=== PATIENT | female | born 1990 | race Caucasian/White ===

== ENCOUNTER → 2020-12-01 11:40 | Outpatient (BNVA) | payer OTHER, SELFPAY | PROVIDERS: PCP Physician Assistant Medical; Visit Provider Advanced Practice Midwife ==

== ENCOUNTER 2020-12-17 14:33 | Outpatient (REF) | payer OTHER, SELFPAY ==
[2020-12-17 17:49] LABS: HCG Quantitative 35 mIU/mL
== END 2020-12-17 14:34 | disposition home or self-care (01) ==
LOC: HO.LAB 14:33
PROVIDERS: PCP Physician Assistant Medical; Visit Provider Advanced Practice Midwife
DX: N92.6 Irregular menstruation, unspecified (principal)
CPT/HCPCS: 36415; 81025; 84702; 99212

== ENCOUNTER 2020-12-22 14:05 | Outpatient (REF) | payer OTHER, SELFPAY ==
[2020-12-22 15:55] LABS: HCG Quantitative 201 mIU/mL
== END 2020-12-22 14:06 | disposition home or self-care (01) ==
LOC: HO.LAB 14:05
PROVIDERS: PCP Physician Assistant Medical; Visit Provider Advanced Practice Midwife
DX: Z34.90 Encounter for supervision of normal pregnancy, unspecified, unspecified trimester (principal)
CPT/HCPCS: 36415; 84702

== ENCOUNTER 2020-12-25 11:05 | Outpatient (REF) | payer OTHER, SELFPAY ==
[2020-12-25 12:54] LABS: HCG Quantitative 695 mIU/mL
== END 2020-12-25 11:06 | disposition home or self-care (01) ==
LOC: HO.LAB 11:05
PROVIDERS: Visit Provider Advanced Practice Midwife
DX: Z34.90 Encounter for supervision of normal pregnancy, unspecified, unspecified trimester (principal)
CPT/HCPCS: 36415; 84702

== ENCOUNTER 2020-12-27 16:50 | Outpatient (REF) | payer OTHER, SELFPAY ==
[2020-12-27 19:26] LABS: HCG Quantitative 1406 mIU/mL
== END 2020-12-27 16:51 | disposition home or self-care (01) ==
LOC: HO.LAB 16:50
PROVIDERS: Visit Provider Obstetrics & Gynecology
DX: Z34.90 Encounter for supervision of normal pregnancy, unspecified, unspecified trimester (principal); N92.6 Irregular menstruation, unspecified
CPT/HCPCS: 36415; 84702

== ENCOUNTER 2020-12-29 16:54 | Outpatient (REF) | payer OTHER, SELFPAY ==
[2020-12-29 18:39] LABS: HCG Quantitative 2671 mIU/mL
== END 2020-12-29 16:55 | disposition home or self-care (01) ==
LOC: HO.LAB 16:54
PROVIDERS: Visit Provider Advanced Practice Midwife
DX: Z34.90 Encounter for supervision of normal pregnancy, unspecified, unspecified trimester (principal)
CPT/HCPCS: 36415; 84702

== ENCOUNTER 2020-12-31 14:50 | Outpatient (REF) | payer OTHER, SELFPAY ==
--- NOTE | ~2020-12-31 | US_ITS ---
EXAMINATION: OBSTETRICAL ULTRASOUND, FIRST TRIMESTER HISTORY: 30-year-old at 5.4 weeks of gestation Viability LMP: 11/22/2020 COMPARISON: None in this TECHNIQUE: Real time transabdominal imaging with color and M-mode Doppler. Transvaginal ultrasound was performed using an endovaginal probe. FINDINGS: A single intrauterine gestational sac with diameter of 7.8 mm consistent with 5 weeks and 3 days is noted. There is no yolk sac or embryonic pole seen. Left ovary is within normal limits (2.7 x 2.2 x 2.2 cm). Right ovary measured 1.9 x 1.6 x 1.4 cm. There are 2 anechoic paraovarian cysts seen. 1.8 x 1.4 x 1.5 cm and 1.4 x 1.1 x 1.1 cm. GESTATIONAL AGE: 1. GA from LMP: 5.4 wks 2. GA from AUA: 5.3 wks ESTIMATED DATE OF DELIVERY: 1. CARROLL from LMP: 08/29/2021 2. CARROLL from AUA: 08/30/2021 US/US OB transvaginal IMPRESSION: 1. A single intrauterine gestational sac without yolk sac or embryo was noted. 2. Paraovarian cysts in the right adnexa 3. No fluid in the posterior cul-de-sac I informed the patient that the today's finding is consistent with early . Until 6 weeks of gestation, and embryonic pole may not be visible. She informs me that her serum beta hCG has been rising appropriately. Suggest a follow-up in one week for viability. (Not scheduled). Thank you very much for this referral. This note was generated with a voice recognition program. Please excuse any errors which may have been overlooked during my review of this note. Sometimes these errors may affect the content or meaning of a given sentence.
--- NOTE | ~2020-12-31 | US_ITS ---
EXAMINATION: OBSTETRICAL ULTRASOUND, FIRST TRIMESTER HISTORY: 30-year-old at 5.4 weeks of gestation Viability LMP: 11/22/2020 COMPARISON: None in this TECHNIQUE: Real time transabdominal imaging with color and M-mode Doppler. Transvaginal ultrasound was performed using an endovaginal probe. FINDINGS: A single intrauterine gestational sac with diameter of 7.8 mm consistent with 5 weeks and 3 days is noted. There is no yolk sac or embryonic pole seen. Left ovary is within normal limits (2.7 x 2.2 x 2.2 cm). Right ovary measured 1.9 x 1.6 x 1.4 cm. There are 2 anechoic paraovarian cysts seen. 1.8 x 1.4 x 1.5 cm and 1.4 x 1.1 x 1.1 cm. GESTATIONAL AGE: 1. GA from LMP: 5.4 wks 2. GA from AUA: 5.3 wks ESTIMATED DATE OF DELIVERY: 1. CARROLL from LMP: 08/29/2021 2. CARROLL from AUA: 08/30/2021 US/US OB <= 14 weeks fetus IMPRESSION: 1. A single intrauterine gestational sac without yolk sac or embryo was noted. 2. Paraovarian cysts in the right adnexa 3. No fluid in the posterior cul-de-sac I informed the patient that the today's finding is consistent with early . Until 6 weeks of gestation, and embryonic pole may not be visible. She informs me that her serum beta hCG has been rising appropriately. Suggest a follow-up in one week for viability. (Not scheduled). Thank you very much for this referral. This note was generated with a voice recognition program. Please excuse any errors which may have been overlooked during my review of this note. Sometimes these errors may affect the content or meaning of a given sentence.
== END 2020-12-31 14:51 | disposition home or self-care (01) ==
LOC: HO.US 14:50
PROVIDERS: Visit Provider Advanced Practice Midwife
DX: N92.6 Irregular menstruation, unspecified (principal)
CPT/HCPCS: 76801; 76817

== ENCOUNTER 2021-01-04 12:29 | Outpatient (REF) | payer OTHER, SELFPAY ==
--- NOTE | ~2021-01-04 | US_ITS ---
EXAMINATION: US OBSTETRICAL ULTRASOUND CLINICAL INFORMATION: Containing COMPARISON: Previous exam 12/31/2020. LMP: 11/22/2020. Gestational age by maternal dates is 6 weeks 1 day. Estimated date of delivery by maternal dates is 08/29/2021. TECHNIQUE: Transabdominal and transvaginal first trimester OB ultrasound FINDINGS: There is a single intrauterine gestational sac with visible yolk sac, embryo/fetus, and cardiac activity. There is no significant subchorionic hemorrhage or hematoma. HR: 124 beats per minute. CRL (crown rump length): 0.31 cm (6 weeks 0 days +/- 4 days). CARROLL (estimated date of delivery): 10/30/2020 +/- 4 days. MATERNAL ADNEXA: The right maternal ovary measures 2.5 x 1.9 x 1.5 cm. there are 2 adnexal or paraovarian cysts measuring 2 x 1.6 x 1.8 cm and 2 x 1.5 x 1.8 cm. The left maternal ovary measures 3 2.3 x 2.6 cm. There is no significant maternal adnexal mass. No maternal pelvic ascites. US/US OB transvaginal IMPRESSION: 1. Single intrauterine gestation with ultrasound gestational age of 6 weeks 0 +/- 4 days. 2. Estimated date of delivery is 08/30/2021 +/- 4 days. 3. No maternal adnexal mass or pelvic ascites.
--- NOTE | ~2021-01-04 | US_ITS ---
EXAMINATION: US OBSTETRICAL ULTRASOUND CLINICAL INFORMATION: Containing COMPARISON: Previous exam 12/31/2020. LMP: 11/22/2020. Gestational age by maternal dates is 6 weeks 1 day. Estimated date of delivery by maternal dates is 08/29/2021. TECHNIQUE: Transabdominal and transvaginal first trimester OB ultrasound FINDINGS: There is a single intrauterine gestational sac with visible yolk sac, embryo/fetus, and cardiac activity. There is no significant subchorionic hemorrhage or hematoma. HR: 124 beats per minute. CRL (crown rump length): 0.31 cm (6 weeks 0 days +/- 4 days). CARROLL (estimated date of delivery): 10/30/2020 +/- 4 days. MATERNAL ADNEXA: The right maternal ovary measures 2.5 x 1.9 x 1.5 cm. there are 2 adnexal or paraovarian cysts measuring 2 x 1.6 x 1.8 cm and 2 x 1.5 x 1.8 cm. The left maternal ovary measures 3 2.3 x 2.6 cm. There is no significant maternal adnexal mass. No maternal pelvic ascites. US/US OB <= 14 weeks fetus IMPRESSION: 1. Single intrauterine gestation with ultrasound gestational age of 6 weeks 0 +/- 4 days. 2. Estimated date of delivery is 08/30/2021 +/- 4 days. 3. No maternal adnexal mass or pelvic ascites.
== END 2021-01-04 12:30 | disposition home or self-care (01) ==
LOC: HO.US 12:29
PROVIDERS: Visit Provider Advanced Practice Midwife
DX: Z34.90 Encounter for supervision of normal pregnancy, unspecified, unspecified trimester (principal)
CPT/HCPCS: 76801; 76817

== ENCOUNTER → 2021-01-10 09:05 | Outpatient (BNVA) | payer OTHER, SELFPAY | PROVIDERS: Visit Provider Advanced Practice Midwife | DX: O34.219 Maternal care for unspecified type scar from previous cesarean delivery (principal) | CPT/HCPCS: 99212 ==